=== PATIENT | female | born 1970 | race Caucasian/White ===

== ENCOUNTER 2016-05-06 14:20 | Inpatient (IN) | payer OTHER ==
[2016-05-06 17:04] VITALS: BMI 31.3
--- NOTE | 2016-05-06 18:58 | HP ---
COWS - Scale Resting Pulse: 0= [place] 80 or Below Sweatin= Chills/Flushing Restless Observation: 3= Extraneous Movement Pupil Size: 1= Pupils >than Normal Bone or Joint Aches: 2= Severe Diffuse Aches Runny Nose/ Eye Tearin= Runny Nose/Eyes GI Upset > 30mins: 3= Vomiting/Diarrhea Tremor Observation: 2= Slight Tremor Visible Yawning Observation: 0= None Anxiety or Irritability: 2=Irritable/Anxious Goose Flesh Skin: 3=Piloerection COWS Score: 19 CIWA Score - CIWA Score Nausea/Vomitin Muscle Tremors: 4-Moderate,w/Arms Extend Anxiety: 4-Mod. Anxious/Guarded Agitation: 4-Moderately Restless Paroxysmal Sweats: 1-Minimal Palms Moist Orientation: 1-Uncertain about Date Tacttile Disturbances: 0-None Auditory Disturbances: 0-None Visual Disturbances: 0-None Headache: 3-Moderate CIWA-Ar Total Score: 19 Admission ROS BHS - HPI Chief Complaint: WITHDRAWAL SX Allergies/Adverse Reactions: Allergies Allergy/AdvReac Type Severity Reaction Status Date / Time levofloxacin [From Levaquin] Allergy Intermediate Rash Verified 05/06/16 17:24 tetracycline Allergy Intermediate Rash Verified 05/06/16 17:24 vancomycin Allergy Intermediate Rash Verified 05/06/16 17:24 History of Present Illness: 46 YEARS OLD FEMALE WITH LONG HISTORY OF ALCOHOL XANAX OPIATE NICOTINE DEPENDENCE ROMERO SEIZURE ASTHMA HYPERTENSION GERD HAS BIPOLAR II IS ADMITTED TO DETOX Exam Limitations: No Limitations - Ebola screening Have you traveled outside of the country in the last 21 days: No Have you had contact with anyone from an Ebola affected area: No Have you been sick,other than usual withdrawal symptoms: No Do you have a fever: No - Review of Systems Constitutional: Chills, Changes in sleep, Weight Stable EENT: reports: Dental Problems (LOWER TEETH MISSING) Respiratory: reports: No Symptoms reported Cardiac: reports: No Symptoms Reported GI: reports: Diarrhea, Nausea, Poor Fluid Intake, Vomiting, Indigestion, Abdominal cramping : reports: No Symptoms Reported Musculoskeletal: reports: Back Pain, Joint Pain, Muscle Pain, Neck Pain Integumentary: reports: Change in Color (RIGHT AND LEFT UPPER EXTREMITIE) Neuro: reports: Seizure (SINCE AGE 30 TREATED WITH DILANTIN 300 MG DAILY LAST DOSE A YEAR AGO), Tremors Endocrine: reports: No Symptoms Reported Hematology: reports: No Symptoms Reported Psychiatric: reports: Judgement Intact Other Systems: Reviewed and Negative Patient History - Patient Medical History Hx Anemia: No Hx Asthma: Yes (Pt is on Albuterol IH) Hx Chronic Obstructive Pulmonary Disease (COPD): No Hx Cancer: No Hx Cardiac Disorders: No Hx Congestive Heart Failure: No Hx Hypertension: Yes (BP: 149/103) Hx Hypercholesterolemia: No Hx Pacemaker: No HX Cerebrovascular Accident: No Hx Seizures: Yes (Drug-related, 03/31) Hx Dementia: No Hx Diabetes: No Hx Gastrointestinal Disorders: No Hx Liver Disease: No Hx Genitourinary Disorders: No Hx Sexually Transmitted Disorders: No Hx Renal Disease (ESRD): No Hx Thyroid Disease: No Hx Human Immunodeficiency Virus (HIV): No Hx Hepatitis C: No Hx Depression: No Hx Suicide Attempt: No Hx Bipolar Disorder: Yes Hx Schizophrenia: No - Patient Surgical History Past Surgical History: Yes Hx Neurologic Surgery: No Hx Cataract Extraction: No Hx Cardiac Surgery: No Hx Lung Surgery: No Hx Breast Surgery: No Hx Breast Biopsy: No Hx Abdominal Surgery: No Hx Appendectomy: No Hx Cholecystectomy: No Hx Genitourinary Surgery: No Hx Section: No Hx Orthopedic Surgery: No Hx Hysterectomy: No Other Surgical History: Tonsillectomy, RIGHT TUBE Ectopic in 1997 Anesthesia Reaction: No - PPD History Previous Implant?: Yes Documented Results: Negative w/o proof Implanted On Prior R Admission?: No PPD to be Administered?: Yes - Reproductive History Patient is a Female of Child Bearing Age (11 -55 yrs old): No Last Menstrual Period: 05/05/16 Patient : No - Smoking Cessation Smoking history: Current every day smoker Have you smoked in the past 12 months: Yes Aproximately how many cigarettes per day: 20 Cigars Per Day: 0 Hx Chewing Tobacco Use: No Initiated information on smoking cessation: Yes 'Breaking Loose' booklet given: 05/06/16 - Substance & Tx. History Hx Alcohol Use: Yes Hx Substance Use: Yes Substance Use Type: Alcohol, Opiates, Tranquilizers Hx Substance Use Treatment: Yes - Substances Abused Alcohol Route: Oral Frequency: Daily Amount used: Vodka 1 pint, Beer 24oz Age of first use: 7 Date of Last Use: 05/06/16 Heroin Route: Injection Frequency: Daily Amount used: 10-30 bags Age of first use: 26 Date of Last Use: 05/06/16 Alprazolam (Xanax) Route: Oral Frequency: Daily Amount used: 8 MG Age of first use: 37 Date of Last Use: 05/06/16 Family Disease History - Family Disease History Family Disease History: Heart Disease: Father (), Mother, Other: Sister (GUN SHOT) Admission Physical Exam [facility] - Vital Signs Vital Signs: Vital Signs - 24 hr 05/06/16 17:02 Temperature 98.5 F Pulse Rate 78 Respiratory 18 Rate Blood Pressure 149/103 - Physical General Appearance: Yes: Nourished, Appropriately Dressed, Moderate Distress, Tremorous, Irritable, Sweating, Anxious HEENTM: Yes: Hearing grossly Normal, Normal ENT Inspection, Normocephalic, Normal Voice Respiratory: Yes: Chest Non-Tender, Lungs Clear, Normal Breath Sounds, No Respiratory Distress, No Accessory Muscle Use Neck: Yes: Supple, Trachea in good position Breast: Yes: Breasts Symetrical Cardiology: Yes: Regular Rhythm, Regular Rate, S1, S2 Abdominal: Yes: Non Tender, Soft Genitourinary: Yes: Within Normal Limits Back: Yes: Normal Inspection Musculoskeletal: Yes: full range of Motion, Gait Steady, Back pain, Muscle Pain Extremities: Yes: Normal Range of Motion, Non-Tender, Tremors, Erythema (RIGHT HAND) Neurological: Yes: Alert, Motor Strength 5/5, Normal Response, Depressed Affect Integumentary: Yes: Warm, Moist, Track Gold Lymphatic: Yes: Within Normal Limits - Diagnostic (1) Alcohol dependence with uncomplicated withdrawal Current Visit: Yes Status: Acute (2) Opioid dependence with withdrawal Current Visit: Yes Status: Acute (3) Sedative, hypnotic or anxiolytic dependence with withdrawal, uncomplicated Current Visit: Yes Status: Acute (4) Seizure Current Visit: Yes Status: Acute Comment: NEURONTIN (5) Asthma Current Visit: Yes Status: Acute Qualifiers: Asthma severity: mild intermittent Asthma complication type: with status asthmaticus Qualified Code(s): J45.22 - Mild intermittent asthma with status asthmaticus (6) Hypertension Current Visit: Yes Status: Acute Qualifiers: Hypertension type: other secondary hypertension Qualified Code(s): I15.8 - Other secondary hypertension Comment: ALCOHOL WITHDRAWAL RELATED (7) GERD (gastroesophageal reflux disease) Current Visit: Yes Status: Acute Qualifiers: Esophagitis presence: without esophagitis Qualified Code(s): K21.9 - Gastro-esophageal reflux disease without esophagitis (8) Nicotine dependence Current Visit: Yes Status: Acute Qualifiers: Nicotine product type: cigarettes Substance use status: in withdrawal Qualified Code(s): F17.213 - Nicotine dependence, cigarettes, with withdrawal (9) Bipolar II disorder Current Visit: Yes Status: Resolved Cleared for Admission S - Detox or Rehab S Level of Care: Medically Managed Detox Regimen/Protocol: Methadone/Valium S Breath Alcohol Content Breath Alcohol Content: 0 Urine Pregancy Test - Result Urine Test Results: Negative- NO Line Present Urine Drug Screen - Results Drug Screen Negative: No Urine Drug Screen Results: OPI-Opiates, BZO-Benzodiazepines, TCA-Tricyclic Antidepress
[2016-05-06] MEDS ORDERED: MAGNESIUM HYDROX 2400MG/30ML ORAL SUSPENSION 30 ML CUP PO PRN (19:07)
[2016-05-06] MEDS ORDERED: P-EPHED 60MG/TRIPROLIDI 2.5MG TABLET PO PRN (19:07)
[2016-05-06] MEDS ORDERED: MENTHOL/PHENOL 1 EACH UD MM PRN (19:07)
[2016-05-06] MEDS ORDERED: LOPERAMIDE HCL 2 MG CAPSULE PO PRN (19:07)
[2016-05-06] MEDS ORDERED: METHADONE HCL 10 MG TABLET (FOR DETOX USE ONLY) PO ONE ×2 (19:07→23:00)
[2016-05-06] MEDS ORDERED: diphenhydrAMINE HCL 50 MG CAPSULE PO PRN (19:07)
[2016-05-06] MEDS ORDERED: MAG HYDROX/AL HYDROX/SIMETH 30 ML UNIT-DOSE CUP PO PRN (19:07)
[2016-05-06] MEDS ORDERED: ACETAMINOPHEN 325 MG TABLET (FP) PO PRN (19:07)
[2016-05-06] MEDS ORDERED: MAGNESIUM CITRATE 300 ML BOTTLE PO PRN (19:07)
[2016-05-06] MEDS ORDERED: NICOTINE POLACRILEX 4 MG GUM BC PRN (19:07)
[2016-05-06] MEDS ORDERED: guaiFENesin/D-METHORPHAN HB 10 ML UNIT-DOSE CUPS PO PRN (19:07)
[2016-05-06] MEDS ORDERED: diazePAM 5 MG TABLET PO ONE (19:07)
[2016-05-06] MEDS ORDERED: ONDANSETRON *ODT* 4 MG TABLET SL PRN (19:09)
[2016-05-06] MEDS ORDERED: ALBUTEROL SO4 6.7 GM HFA INHALER IH PRN (19:10)
[2016-05-06] MEDS ORDERED: cloNIDine HCL 0.1 MG TABLET PO PRN (19:14)
[2016-05-06] MEDS: NICOTINE 21 MG/24 HOURS TOPICAL PATCH TD SCH (21:44)
[2016-05-06] MEDS ORDERED: THIAMINE HCL 100 MG TABLET (FP) PO SCH (22:00)
[2016-05-06] MEDS: RANITIDINE HCL 150 MG TABLET (FP) PO SCH (22:31)
[2016-05-06] MEDS: diazePAM 5 MG TABLET PO SCH (22:31)
[2016-05-06] MEDS: GABAPENTIN 100 MG CAPSULE (FP) PO SCH (22:31)
[2016-05-06 23:20] LABS: URINE APPEARANCE CLEAR; URINE BILIRUBIN NEGATIVE (NEGATIVE); URINE COLOR YELLOW; URINE GLUCOSE (UA) NEGATIVE (NEGATIVE); URINE KETONE NEGATIVE (NEGATIVE); URINE LEUK ESTERASE NEGATIVE (NEGATIVE); URINE NITRITE NEGATIVE (NEGATIVE); URINE PROTEIN NEGATIVE (NEGATIVE); URINE UROBILINOGEN NEGATIVE E.U./dl (0.2-1.0)
[2016-05-06 23:32] LABS: URINE BLOOD 2+ (NEGATIVE)
[2016-05-06 23:37] LABS: URINE BACTERIA RARE /hpf (NONE SEEN); URINE MUCUS FEW; URINE RBC 8 /hpf (0-3); URINE WBC 1 /hpf (3-5)
[2016-05-07] MEDS: GABAPENTIN 100 MG CAPSULE (FP) PO SCH (05:56)
[2016-05-07] MEDS: diazePAM 5 MG TABLET PO SCH (05:56)
[2016-05-07 07:05] VITALS: TEMP 98.8
[2016-05-07] MEDS: diazePAM 5 MG TABLET PO PRN ×2 (07:26→11:06)
--- NOTE | 2016-05-07 08:46 | CONSULT ---
[facility] Psychiatric Consult - Data Date of interview: 05/07/16 Admission source: [facility] Identifying data: This is 46 years old female with history of psychiatric hospitaliozations intoxicated with: Alcohol, Heroin, Xanax and Nicotine Substance Abuse History: - Smoking Cessation. Smoking history: Current every day smoker. Have you smoked in the past 12 months: Yes. Aproximately how many cigarettes per day: 20. Cigars Per Day: 0. Hx Chewing Tobacco Use: No. Initiated information on smoking cessation: Yes. 'Breaking Loose' booklet given : 05/06/16. - Substance & Tx. History. Hx Alcohol Use: Yes. Hx Substance Use : Yes. Substance Use Type: Alcohol, Opiates, Tranquilizers. Hx Substance Use Treatment: Yes. - Substances Abused. Alcohol. Route: Oral. Frequency: Daily. Amount used: Vodka 1 pint, Beer 24oz. Age of first use: 7. Date of Last Use: 05/06/16. Heroin. Route: Injection. Frequency: Daily. Amount used: 10-30 bags. Age of first use: 26. Date of Last Use: 05/06/16. Alprazolam (Xanax). Route: Oral. Frequency: Daily. Amount used: 8 MG. Age of first use: 37. Date of Last Use: 05/06/16 Medical History: Asthma, mGERD, HTN, Seizure history Psychiatric History: Patient reports history of anxiety and depression, with most recent psychiatric admission on [address] [facility] form safety, reports taking prior to admission: Vistaril 50mg po q4 prn for anxiety. Gabapenti 400mg po tid Physical/Sexual Abuse/Trauma History: Denies Additional Comment: Vistaril 50mg po q4 prn for anxiety. Gabapenti 400mg po tid Mental Status Exam - Mental Status Exam Alert and Oriented to: Person Cognitive Function: Fair Patient Appearance: Unkempt Mood: Sad Affect: Flat Patient Behavior: Sedated Speech Pattern: Delayed Voice Loudness: Mildly Soft/Quiet Thought Process: Circumstantial Thought Disorder: Being Controlled Hallucinations: Denies Suicidal Ideation: Denies Homicidal Ideation: Denies Insight/Judgement: Fair Sleep: Difficulty falling asleep Appetite: Weight gain Muscle strength/Tone: Mild Hypotonicity Gait/Station: Shuffling Additional Comments: Vistaril 50mg po q4 prn for anxiety. Gabapenti 400mg po tid Psychiatric Findings - Problem List ([place] 1, 2,3) (1) Alcohol dependence with uncomplicated withdrawal Status: Acute (2) Hypertension Status: Acute Qualifiers: Hypertension type: other secondary hypertension Qualified Code(s): I15.8 - Other secondary hypertension Comment: ALCOHOL WITHDRAWAL RELATED (3) Nicotine dependence Status: Acute Qualifiers: Nicotine product type: cigarettes Substance use status: in withdrawal Qualified Code(s): F17.213 - Nicotine dependence, cigarettes, with withdrawal (4) Opioid dependence with withdrawal Status: Acute (5) Sedative, hypnotic or anxiolytic dependence with withdrawal, uncomplicated Status: Acute (6) Bipolar II disorder Status: Resolved (7) Drug-induced mood disorder Status: Acute - Initial Treatment Plan Initial Treatment Plan: Vistaril 50mg po q4 prn for anxiety. Gabapenti 400mg po tid
[2016-05-07] MEDS ORDERED: hydrOXYzine PAMOATE 50 MG CAPSULE (FP) PO PRN (08:47)
[2016-05-07 09:53] VITALS: BP 138/91; PULSE 81
[2016-05-07] MEDS ORDERED: METHADONE HCL 10 MG TABLET (FOR DETOX USE ONLY) PO SCH (10:00)
[2016-05-07] MEDS ORDERED: PRENATAL VITAMINS W/ FOLIC ACID TABLET (FP) PO SCH (10:00)
[2016-05-07] MEDS ORDERED: NICOTINE 21 MG/24 HOURS TOPICAL PATCH TD SCH (10:00)
[2016-05-07 10:05] LABS: MCH 32.5 pg (25.7-33.7); MCHC 33.7 g/dl (32.0-36.0); MEAN CELL VOLUME 96.5 fl (80-96); MEAN PLT VOLUME 10.2 fl (7.5-11.1); PLATELET COUNT 143 K/MM3 (134-434); RDW 13.2 % (11.6-15.6); WHITE BLOOD COUNT 3.8 K/mm3 (4.0-10.0)
[2016-05-07] MEDS: RANITIDINE HCL 150 MG TABLET (FP) PO SCH (10:11)
[2016-05-07] MEDS: NICOTINE 21 MG/24 HOURS TOPICAL PATCH TD SCH (10:15)
[2016-05-07] MEDS ORDERED: LIDOCAINE 5% TOPICAL PATCH TP ONE (10:18)
[2016-05-07] MEDS ORDERED: NITROGLYCERIN SUBLINGUAL 1/150 0.4 MG TAB SL PRN (10:18)
--- NOTE | 2016-05-07 10:24 | PN ---
[facility] CIWA - CIWA Score Nausea/Vomitin Muscle Tremors: 3 Anxiety: 3 Agitation: 3 Paroxysmal Sweats: 3 Orientation: 0-Oriented Tacttile Disturbances: 2-Mild Itch/Numbness/Burn Auditory Disturbances: 0-None Visual Disturbances: 0-None Headache: 0-None Present CIWA-Ar Total Score: 17 BHS COWS - Scale Resting Pulse: 1= [place] 81-100 Sweatin=Flushed/Facial Moisture Restless Observation: 3= Extraneous Movement Pupil Size: 1= Pupils >than Normal Bone or Joint Aches: 2= Severe Diffuse Aches Runny Nose/ Eye Tearin= Nasal Congestion GI Upset > 30mins: 2= Nausea/Diarrhea Tremor Observation of Outstretched Hands: 2= Slight Tremor Visible Yawning Observation: 0= None Anxiety or Irritability: 2=Irritable/Anxious Goose Flesh Skin: 0=Smooth Skin COWS Score: 16 BHS Progress Note (SOAP) Subjective: interrupted sleep, sweats, shakes, lbp h/o cad , decreased appetite Objective: 05/07/16 10:22 Vital Signs Temperature 98.8 F 05/07/16 09:52 Pulse Rate 81 05/07/16 09:52 Respiratory Rate 18 05/07/16 09:52 Blood Pressure 138/91 05/07/16 09:52 O2 Sat by Pulse Oximetry (%) Laboratory Tests 05/06/16 19:51 Urine Color Yellow Urine Appearance Clear Urine pH 6.0 Ur Specific [place] 1.011 Urine Protein Negative Urine Glucose (UA) Negative Urine Ketones Negative Urine Blood 2+ H Urine Nitrite Negative Urine Bilirubin Negative Urine Urobilinogen Negative Ur Leukocyte Esterase Negative Urine RBC 8 Urine WBC 1 Ur Epithelial Cells Rare Urine Bacteria Rare Urine Mucus Few pt aox3 in nad ambulating Assessment: 05/07/16 10:22 withdrawl sx's h/o cad lbp Plan: cont. detox increase fluids s/l ntg naprosyn bid f/up pending labs
[2016-05-07 11:05] LABS: ALBUMIN 3.8 g/dl (3.4-5.0); ANION GAP 11 (8-16); BILIRUBIN,TOTAL 0.4 mg/dL (0.2-1.0); CO2 27 mmol/L (21-32); CREATININE 0.7 mg/dL (0.55-1.02); GLUCOSE,RANDOM 102 mg/dL (74-106); SGOT/AST 28 U/L (15-37); SGPT/ALT 38 U/L (12-78); TOT PROT 7.6 g/dl (6.4-8.2)
[2016-05-07 11:06] LABS: ALK PHOS 89 U/L (45-117)
[2016-05-07] MEDS ORDERED: amLODIPine BESYLATE 10 MG TABLET (FP) PO SCH (13:00)
--- NOTE | 2016-05-07 15:04 | EKG ---
Test Reason : Blood Pressure : / mmHG Vent. Rate : 063 BPM Atrial Rate : 063 BPM P-R Int : 170 ms QRS Dur : 090 ms QT Int : 406 ms P-R-T Axes : 052 051 027 degrees QTc Int : 415 ms NORMAL SINUS RHYTHM POSSIBLE LATERAL INFARCT , AGE UNDETERMINED ABNORMAL ECG WHEN COMPARED WITH ECG OF 06-MAY-2016 19:57, CRITERIA FOR SEPTAL INFARCT ARE NO LONGER PRESENT NO SIGNIFICANT CHANGE WAS FOUND Confirmed by WILL VILLANUEVA, NIKOLAI ([id number]) on 05/07/2016 3:04:40 PM Referred By: Confirmed By:NIKOLAI SOLIS MD
--- NOTE | 2016-05-07 15:07 | EKG ---
Test Reason : Blood Pressure : / mmHG Vent. Rate : 077 BPM Atrial Rate : 077 BPM P-R Int : 160 ms QRS Dur : 094 ms QT Int : 390 ms P-R-T Axes : 056 044 029 degrees QTc Int : 441 ms NORMAL SINUS RHYTHM POSSIBLE LEFT ATRIAL ENLARGEMENT SEPTAL INFARCT , AGE UNDETERMINED ABNORMAL ECG NO PREVIOUS ECGS AVAILABLE Confirmed by NIKOLAI SOLIS MD ([id number]) on 05/07/2016 3:07:04 PM Referred By: Confirmed By:NIKOLAI SOLIS MD
[2016-05-07] MEDS ORDERED: NAPROXEN 500 MG TABLET (FP) PO SCH (22:00)
[2016-05-08] MEDS ORDERED: LIDOCAINE 5% TOPICAL PATCH TP SCH (10:00)
[2016-05-08] MEDS ORDERED: METHADONE HCL 5 MG TABLET (FOR DETOX USE ONLY) PO SCH (10:00)
[2016-05-08] MEDS ORDERED: diazePAM 5 MG TABLET PO SCH (10:00)
[2016-05-10] MEDS ORDERED: diazePAM 5 MG TABLET PO SCH (10:00)
[2016-05-10] MEDS ORDERED: METHADONE HCL 10 MG TABLET (FOR DETOX USE ONLY) PO SCH (10:00)
[2016-05-11] MEDS ORDERED: METHADONE HCL 5 MG TABLET (FOR DETOX USE ONLY) PO SCH (06:00)
[2016-05-12 00:06] LABS: HCV LOG 10 6.658 (.)
--- NOTE | 2016-07-23 10:09 | DS ---
[facility] Detox Discharge Summary Admission Date: 05/06/16 Discharge Date: 05/07/16 - History Present History: Alcohol Dependence, Opioid Dependence, Sedative Dependence - Physical Exam Results Vital Signs: Vital Signs Temperature 98.8 F 05/07/16 09:52 Pulse Rate 81 05/07/16 09:52 Respiratory Rate 18 05/07/16 09:52 Blood Pressure 138/91 05/07/16 09:52 O2 Sat by Pulse Oximetry (%) - Treatment Hospital Course: Detox Protocol Followed - Medication Discharge Medications: Ambulatory Orders Albuterol Sulfate Inhaler - [Ventolin HFA Inhaler -] 2 puff IH PRN PRN 05/06/16 Gabapentin [Neurontin -] 400 mg PO HS 05/06/16 Naproxen [Naprosyn -] 500 mg PO BID 05/06/16 Nitroglycerin [Nitrostat] 0.4 mg SL PRN PRN 05/06/16 - Diagnosis (1) Alcohol dependence with uncomplicated withdrawal Status: Chronic (2) Asthma Status: Chronic Qualifiers: Asthma severity: mild intermittent Asthma complication type: with status asthmaticus Qualified Code(s): J45.22 - Mild intermittent asthma with status asthmaticus (3) Drug-induced mood disorder Status: Chronic (4) GERD (gastroesophageal reflux disease) Status: Chronic Qualifiers: Esophagitis presence: without esophagitis Qualified Code(s): K21.9 - Gastro-esophageal reflux disease without esophagitis (5) Hypertension Status: Chronic Qualifiers: Hypertension type: essential hypertension Qualified Code(s): I10 - Essential (primary) hypertension (6) Nicotine dependence Status: Chronic Qualifiers: Nicotine product type: cigarettes Substance use status: uncomplicated Qualified Code(s): F17.210 - Nicotine dependence, cigarettes, uncomplicated (7) Opioid dependence with withdrawal Status: Chronic (8) Sedative, hypnotic or anxiolytic dependence with withdrawal, uncomplicated Status: Acute (9) Seizure Status: Acute - AMA Did Patient Leave Against Medical Advice: Yes (yes she was not following unit rules and wanted to leave. )
== END 2016-05-07 11:08 | disposition left against medical advice (07) | DRG 770 ==
LOC: YASAS 14:20 → Y6N 19:10
PROVIDERS: ADMIT Internal Medicine Addiction Medicine; ATTEND Internal Medicine Addiction Medicine
PROC: HZ2ZZZZ Detoxification Services for Substance Abuse Treatment (ICD-10-PCS; principal; 2016-05-06)
DX: F11.23 Opioid dependence with withdrawal (principal); F13.230 Sedative, hypnotic or anxiolytic dependence with withdrawal, uncomplicated; F10.230 Alcohol dependence with withdrawal, uncomplicated; F17.210 Nicotine dependence, cigarettes, uncomplicated; F31.81 Bipolar II disorder; F19.24 Other psychoactive substance dependence with psychoactive substance-induced mood disorder; I25.10 Atherosclerotic heart disease of native coronary artery without angina pectoris; I15.8 Other secondary hypertension; K21.9 Gastro-esophageal reflux disease without esophagitis; M54.5 Low back pain; J45.22 Mild intermittent asthma with status asthmaticus; Z86.69 Personal history of other diseases of the nervous system and sense organs
CPT/HCPCS: 36415; 80053; 81003; 81015; 85027; 86593; 87522; 93005; 93010